=== PATIENT | male | born 1980 | race Caucasian/White ===

== ENCOUNTER 2020-05-16 06:01 | Outpatient (REF) | payer OTHER, SELFPAY ==
[2020-05-16 11:12] LABS: MANUAL DIFF FLAG NO
[2020-05-16 11:25] LABS: Basophils Percent Auto 0.6 % (0-2); Eosinophils Absolute Auto 0.1 X10*3/uL (0.0-0.4); Eosinophils Percent Auto 1.3 % (0-4); Hematocrit 50.2 % (42-52); Hemoglobin 17.4 g/dl (14.0-18.0); Imm Gran Abs Auto 0.01 X10*3/uL (0.00-0.03); Imm Gran Pct Auto 0.2 % (0.0-0.4); Lymphocytes Absolute Auto 1.6 X10*3/uL (1.2-4.9); Lymphocytes Percent Auto 34.3 % (20-40); Mean Corpuscular HGB Conc 34.7 g/dl (31.0-36.0); Mean Corpuscular Hemoglobin 31.5 pg (27.0-33.0); Mean Corpuscular Volume 90.8 fL (80-98); Mean Platelet Volume 9.6 fL (9.4-12.4); Monocytes Absolute Auto 0.5 X10*3/uL (0.1-1.2); Monocytes Percent Auto 11.2 % (2-11); Neutrophils Absolute Auto 2.4 X10*3/uL (2.0-8.3); Neutrophils Percent Auto 52.4 % (45-73); Platelet Count 121 X10*3/uL (160-400); Red Blood Count 5.53 X10*6/uL (4.60-5.80); Red Cell Distribution Width 11.9 % (11.0-16.0); White Blood Count 4.6 X10*3/uL (4.8-10.8)
[2020-05-16 11:55] LABS: Alanine Aminotransferase 87 U/L (0-40); Albumin Level 4.3 g/dL (3.5-5.0); Alkaline Phosphatase 93 U/L (39-117); Anion Gap 12 (12-20); Aspartate Amino Transferase 39 U/L (5-37); Bilirubin Total 1.7 mg/dL (0.0-1.0); Blood Urea Nitrogen 20 mg/dL (9-16); C Reactive Protein 0.08 mg/dL (< or = 0.50); Carbon Dioxide 30 mmol/L (22-29); Chloride 103 mmol/L (96-108); Cholesterol 228 mg/dL; Estimated Glomerular Filt Rate > 60; Glucose Fasting 93 mg/dL (60-99); HDL Cholesterol 43 mg/dL; LDL Cholesterol Calculated 128 mg/dl; Potassium 3.8 mmol/L (3.3-5.1); Rheumatoid Factor < 15.0 IU/mL (<15.0); Sodium 141 mmol/L (135-145); Triglycerides 285 mg/dL
[2020-05-16 12:03] LABS: TSH reflex Free T4 1.87 mIU/mL (0.32-4.0)
[2020-05-16 12:06] LABS: Erythrocyte Sedimentation Rate 1 MM/HR (0-15)
[2020-05-17 12:57] LABS: Antibody to SS-A Antigen <1.0 NEG AI (<1.0 NEG); Antibody to SS-B Antigen <1.0 NEG AI (<1.0 NEG)
[2020-05-18 22:27] LABS: Cyclic Citrullinated Peptide <16 UNITS
[2020-05-19 14:57] LABS: Anti Nuclear Antibody Screen NEGATIVE (NEGATIVE)
== END 2020-05-16 06:02 | disposition home or self-care (01) ==
LOC: HO.HMGCLDS 06:01
PROVIDERS: PCP Nurse Practitioner Family; Visit Provider Nurse Practitioner Family
DX: Z00.00 Encounter for general adult medical examination without abnormal findings (principal); I73.00 Raynaud's syndrome without gangrene; R74.8 Abnormal levels of other serum enzymes; R17 Unspecified jaundice
CPT/HCPCS: 36415; 80053; 80061; 84443; 85025; 85652; 86038; 86039; 86140; 86200; 86235; 86431

== ENCOUNTER 2020-09-02 17:06 | Outpatient (REF) | payer OTHER, SELFPAY ==
--- NOTE | ~2020-09-02 | US_ITS ---
EXAMINATION: US VENOUS ULTRASOUND WITH DOPPLER LOWER EXTREMITY, RIGHT CLINICAL INFORMATION: Pain COMPARISON: None TECHNIQUE: Ultrasound of the deep veins is performed from the hip to the calf with compression sonography and color and pulse Doppler assessment. Spectral analysis with color-flow imaging is performed. FINDINGS: There is normal venous compression and respiratory variation and augmented flow. The visualized common femoral vein, superficial femoral vein, profunda femoral vein, popliteal vein, and the trifurcation region shows no evidence of deep venous thrombosis. There is a 3.7 x 1.6 x 2.3 cm significant popliteal fossa cyst. US/US venous duplex LE RT IMPRESSION: No DVT demonstrated in the right lower extremity. Small Colbert's cyst.
== END 2020-09-02 17:07 | disposition home or self-care (01) ==
LOC: HO.US 17:06
PROVIDERS: PCP Nurse Practitioner Family; Visit Provider Nurse Practitioner Family
DX: M79.661 Pain in right lower leg (principal); M71.21 Synovial cyst of popliteal space [Baker], right knee
CPT/HCPCS: 93971

== ENCOUNTER 2020-09-05 06:06 | Outpatient (REF) | payer OTHER, SELFPAY ==
[2020-09-05 12:24] LABS: Alanine Aminotransferase 63 U/L (0-40); Albumin Level 4.3 g/dL (3.5-5.0); Alkaline Phosphatase 98 U/L (39-117); Aspartate Amino Transferase 36 U/L (5-37); Bilirubin Direct 0.3 mg/dL (0.0-0.5); Bilirubin Total 0.9 mg/dL (0.0-1.0); C Reactive Protein 0.84 mg/dL (< or = 0.50); Cholesterol 201 mg/dL; HDL Cholesterol 35 mg/dL; LDL Cholesterol Calculated 127 mg/dl; Triglycerides 195 mg/dL
[2020-09-05 12:29] LABS: Erythrocyte Sedimentation Rate 8 MM/HR (0-15)
[2020-09-05 12:39] LABS: HBS Num1 0.08 mIU/mL (0-7.99); HBc Num1 0.29 S/CO (0.00-0.79); Hepatitis B Core Antibody Nonreactive (Nonreactive); ~HepC Num1 0.12 S/CO (0.00-0.79); ~Hepatitis A Antibody IgM Nonreactive (Nonreactive); ~Hepatitis B Surface Antibody NONREACTIVE (Nonreactive); ~Hepatitis C Antibody Nonreactive (Nonreactive)
[2020-09-05 13:00] LABS: HBsAGNum1 0.22 S/CO (0.00-0.99); Hepatitis B Surface Antigen Negative (Negative)
[2020-09-09 22:16] LABS: Lipoprotein A <10 nmol/L (<75)
[2020-09-12 10:22] LABS: Testosterone, Total 434 ng/dL (250-1100)
== END 2020-09-05 06:07 | disposition home or self-care (01) ==
LOC: HO.HMGCLDS 06:06
PROVIDERS: PCP Nurse Practitioner Family; Visit Provider Nurse Practitioner Family
DX: M10.9 Gout, unspecified (principal); R74.8 Abnormal levels of other serum enzymes; E78.5 Hyperlipidemia, unspecified; R17 Unspecified jaundice; R53.83 Other fatigue
CPT/HCPCS: 36415; 80061; 80076; 83695; 84403; 84550; 85652; 86140; 86704; 86706; 86709; 86803; 87340

== ENCOUNTER 2020-12-10 14:05 | Outpatient (REF) | payer OTHER, SELFPAY ==
[2020-12-10 15:31] LABS: Alanine Aminotransferase 83 U/L (0-40); Albumin Level 4.5 g/dL (3.5-5.0); Alkaline Phosphatase 94 U/L (39-117); Anion Gap 13 (12-20); Aspartate Amino Transferase 37 U/L (5-37); Bilirubin Total 1.8 mg/dL (0.0-1.0); Blood Urea Nitrogen 30 mg/dL (9-16); Calcium 9.6 mg/dL (8.4-10.2); Carbon Dioxide 29 mmol/L (22-29); Chloride 104 mmol/L (96-108); Estimated Glomerular Filt Rate 41; Glucose Random 104 mg/dL (60-115); Potassium 4.6 mmol/L (3.3-5.1); Sodium 141 mmol/L (135-145); Total Protein 7.1 g/dL (6.5-8.0); Uric Acid 8.7 mg/dL (3.4-7.0)
== END 2020-12-10 14:06 | disposition home or self-care (01) ==
LOC: HO.LAB 14:05
PROVIDERS: PCP Nurse Practitioner Family; Visit Provider Student in an Organized Health Care Education/Training Program
DX: M10.9 Gout, unspecified (principal)
CPT/HCPCS: 36415; 80053; 84550

== ENCOUNTER 2021-07-13 06:03 | Outpatient (REF) | payer OTHER, SELFPAY ==
[2021-07-13 12:15] LABS: Alanine Aminotransferase 117 U/L (0-40); Albumin Level 4.3 g/dL (3.5-5.0); Alkaline Phosphatase 89 U/L (39-117); Anion Gap 12 (12-20); Aspartate Amino Transferase 48 U/L (5-37); Bilirubin Total 1.4 mg/dL (0.0-1.0); Blood Urea Nitrogen 20 mg/dL (9-16); Calcium 9.4 mg/dL (8.4-10.2); Carbon Dioxide 25 mmol/L (22-29); Chloride 107 mmol/L (96-108); Estimated Glomerular Filt Rate > 60; Glucose Random 115 mg/dL (60-115); Potassium 4.2 mmol/L (3.3-5.1); Sodium 140 mmol/L (135-145); Total Protein 7.1 g/dL (6.5-8.0); Uric Acid 8.8 mg/dL (3.4-7.0)
[2021-07-13 12:27] LABS: Alanine Aminotransferase 117 U/L (0-40); Albumin Level 4.3 g/dL (3.5-5.0); Alkaline Phosphatase 87 U/L (39-117); Anion Gap 11 (12-20); Aspartate Amino Transferase 47 U/L (5-37); Bilirubin Direct 0.4 mg/dL (0.0-0.5); Bilirubin Total 1.4 mg/dL (0.0-1.0); Blood Urea Nitrogen 20 mg/dL (9-16); Calcium 9.4 mg/dL (8.4-10.2); Carbon Dioxide 25 mmol/L (22-29); Chloride 107 mmol/L (96-108); Estimated Glomerular Filt Rate > 60; Glucose Random 114 mg/dL (60-115); Potassium 4.2 mmol/L (3.3-5.1); Sodium 139 mmol/L (135-145); Total Protein 7.1 g/dL (6.5-8.0); Uric Acid 8.7 mg/dL (3.4-7.0)
== END 2021-07-13 06:04 | disposition home or self-care (01) ==
LOC: HO.HMGCLDS 06:03
PROVIDERS: PCP Nurse Practitioner Family; Visit Provider Nurse Practitioner Family
DX: M10.9 Gout, unspecified (principal); R17 Unspecified jaundice; R74.8 Abnormal levels of other serum enzymes
CPT/HCPCS: 36415; 80053; 82248; 84550

== ENCOUNTER → 2021-07-14 12:57 | Outpatient (BNVA) | payer OTHER, SELFPAY | PROVIDERS: PCP Nurse Practitioner Family; Visit Provider Nurse Practitioner Family | DX: Z13.89 Encounter for screening for other disorder (principal) ==

== ENCOUNTER → 2024-01-30 16:04 | Outpatient (AMB) | payer OTHER, SELFPAY ==
--- NOTE | 2024-01-30 16:09 | AM.OFFWIN_ITS ---
Intake Vital Signs 3 01/30/24 16:10 01/30/24 16:54 Height 6 ft 1 in Weight 234 lb BMI 30.9 BP 220/120 H 170/110 H Blood Pressure Location Lt brachial Rt brachial Position Sitting Pulse 93 Pulse Source Pulse Oximeter Pulse Oximetry (%) 98 Oxygen Delivery Method Room Air Intake Visit Reasons: EP Wood Sliver Rt Hand Intake Note: Patient here for wood sliver on right hand. Patient Tobacco Use Status: Never used Tobacco Allergies Penicillins [PENICILLINS] Allergy (Intermediate, Verified 01/30/24 16:10) RASH Do you need a note to return to daycare/school/sports/work: No HPI HPI Comments 2 History of Present Illness0 Details Patient is a 43-year-old male complaining of a wooden splinter in the base of his right thumb. He states it just happened prior to his arrival. He tells me he was shoveling a bunch of equipment onto the wooden truckbed and a piece of the bed chipped off into his hand. He used an Exacto knife to try to get it out. He tells me that it is wider on 1 side than the other so we will only it come out [address]. However the only piece we can see is at the other end, the thick end. So he was unable to slight it out. He does not know when his last Tdap was. Patient also tells me he took a caffeine pill 2 hours ago and that is why his blood pressure is elevated. He states he gets a medication called Lipodrene from [facility] , his friend owns store in his friend told him that there is some caffeine in it as well as ephedra. He denies any chest pain, dizziness, lightheadedness, nausea or sweating. [facility] Medical History (Updated 01/30/24 @ 16:57 by Scarlett Yuen PA-C) Erectile dysfunction Testicular failure Hypertension Surgical History H/O hernia repair Family History Father Type 2 diabetes mellitus Mother No problems noted. Social History Alcohol intake: current Alcohol intake frequency: a few times a week Patient Tobacco Use Status: Never used Tobacco Review of Systems Const All systems reviewed & are unremarkable except as noted in HPI and below Physical Exam Vital Signs: Last Vital Signs Pulse 93 01/30/24 16:10 BP 220/120 H 01/30/24 16:10 Pulse Ox 98 01/30/24 16:10 Oxygen Delivery Method Room Air 01/30/24 16:10 BMI result Body Mass Index 30.9 Const General: cooperative, healthy appearing, comfortable, no acute distress and well developed Orientation/consciousness: patient oriented x3 Limitations: no limitations HEENT Head: Yes normal to inspection Neck Neck: Yes normal visual inspection and Yes supple Neuro General: patient oriented x3 Extrem Other: Palpable 1.5cm apparent splinter under the skin, unable to extract safely. Assessment & Plan Assessment & Plan (1) Wood splinter in hand: Code(s): S60.559A - Superficial foreign body of unspecified hand, initial encounter Plan: Had patient wash his hands with soap and water and then applied Betadine and in sterile fashion, used tweezers to try to extract the wooden splinter with no success. Consulted with ortho and they recommended sending a referral to them so that the hand specialist could see the patient soon, recommended keeping it clean and dry with a dressing over it. We also gave the patient a Tdap and started him on Keflex. (2) Elevated blood pressure reading in office without diagnosis of hypertension: Code(s): R03.0 - Elevated blood-pressure reading, without diagnosis of hypertension Plan: Patient's blood pressure went down from 220 systolic to 170 systolic for the 45 minutes he was in the office, he is completely asymptomatic. I did recommend he go to the emergency department but he refused. We had him sign an AMA form. I did tell him he is at an extremely high risk of having a stroke and he should stop taking the [id number] medication, Lipodrene. Plan see above Orders: Orders 2 TDaP Immunization Today S60.559A - Superficial foreign body of unspecified hand, initial encounter Referrals 2 Orthopedics Referral S60.559A - Superficial foreign body of unspecified hand, initial encounter Medications: New 2 cephalexin 500 mg PO Q6H 20 caps 0RF Coding Level of Care Code Est Pt Level 4 (17041) Diagnoses Wood splinter in hand S60.559A Elevated blood pressure reading in office without diagnosis of hypertension R03.0
[2024-01-30 16:10] VITALS: BP 220/120; PULSE 93; O2SAT 98; BMI 30.9
[2024-01-30 16:54] VITALS: BP 170/110
== END ==
PROVIDERS: PCP Nurse Practitioner Family; Visit Provider Physician Assistant
DX: S60.559A Superficial foreign body of unspecified hand, initial encounter (principal); R03.0 Elevated blood-pressure reading, without diagnosis of hypertension

== ENCOUNTER → 2024-01-30 16:04 | Outpatient (BNVA) | payer OTHER, SELFPAY | PROVIDERS: PCP Nurse Practitioner Family | DX: S60.351A Superficial foreign body of right thumb, initial encounter (principal); R03.0 Elevated blood-pressure reading, without diagnosis of hypertension; W45.8XXA Other foreign body or object entering through skin, initial encounter; Y93.89 Activity, other specified; Y92.9 Unspecified place or not applicable; Y99.9 Unspecified external cause status | CPT/HCPCS: 90471; 90715 ==

== ENCOUNTER 2024-01-31 12:57 | Outpatient (REF) | payer OTHER, SELFPAY ==
--- NOTE | ~2024-01-31 | XR_ITS ---
EXAMINATION: XR HAND RIGHT 3 VIEWS CLINICAL INFORMATION: Pain in right hand M79.641. COMPARISON: None TECHNIQUE: PA, lateral, and oblique views of the right hand. FINDINGS: The bones and soft tissues are normal. No fracture. Alignment is anatomic. Joint spaces are maintained. No erosions or soft tissue calcifications. XR/XR hand RT min 3V IMPRESSION: Normal right hand. Electronically signed by: Dennis Humphrey MD 04/03/2024 09:44 AM OMER
== END 2024-01-31 12:58 | disposition home or self-care (01) ==
LOC: HO.HOSX 12:57
PROVIDERS: Visit Provider Orthopaedic Surgery
DX: M79.641 Pain in right hand (principal); S60.551A Superficial foreign body of right hand, initial encounter; X58.XXXA Exposure to other specified factors, initial encounter; Y93.9 Activity, unspecified; Y92.9 Unspecified place or not applicable; Y99.9 Unspecified external cause status
CPT/HCPCS: 73130

== ENCOUNTER 2024-01-31 12:58 | Outpatient (AMB) | payer OTHER, SELFPAY ==
--- NOTE | 2024-01-31 13:16 | A.OFFVIS_ITS ---
Vital Signs 01/31/24 13:18 Height 6 ft 1 in Weight 220 lb BMI 29.0 Handedness Right Intake Visit Reasons: SENIOR LANDSCAPE ARCHITECT- Right Superficial foreign body Intake Note: Sergio is a 43 year old right hand dominant male who presents today asa new patient for a work related injury, DOI: 01/30/24. Patient was seen on 01/30/24 at the walk in clinic for this injury. He reports a piece of wood stabbed the volar aspect of his right thumb and pierced through the skin. He says he tried to remove it but was unable to fully and can still feel something in his wound. He expresses small amount of pain localized on his right thumb but says it is gradually worsening. He says he is still taking the antibiotics prescribed to him. Denies numbness and tingling. Allergies Penicillins [PENICILLINS] Allergy (Intermediate, Verified 01/31/24 13:18) RASH HPI HPI SENIOR LANDSCAPE ARCHITECT- Right Superficial foreign body: Details: Sergio is a 43 year old right hand dominant man who presents with complaints of a splinter in the thenar mass of his right hand. He was loading equipment onto his truck when he obtained the splinter. He tried to cut this out with an exacto knife, but could not remove the splinter. He was seen in the walk-in clinic, where they failed to remove the splinter, and he was given a course of Keflex. He complains of some pain in his hand, over the splinter site. He feels his pain is gradually worsening at this site. He continues to take his Abx as instructed. [facility] Medical History (Updated 01/31/24 @ 13:42 by Wilfred Sylvester) Erectile dysfunction Testicular failure Hypertension Surgical History H/O hernia repair Family History Father Type 2 diabetes mellitus Mother No problems noted. Social History (Updated 01/31/24 @ 13:19 by TNAA Feliciano) Alcohol intake: current Alcohol intake frequency: a few times a week Patient Tobacco Use Status: Never used Tobacco Current occupational status: employed Current occupation: right hand dominant / construction Review of Systems Const All systems reviewed & are unremarkable except as noted in HPI and below Physical Exam Vital Signs: BMI result Body Mass Index 29.0 Const General: cooperative, healthy appearing and no acute distress Orientation/consciousness: patient oriented x3 HEENT Head: Yes normocephalic and Yes atraumatic Eyes EOM: EOMs intact bilaterally Resp Effort & Inspection: normal respiratory effort and able to speak in complete sentences Cardio Jugular venous distension: no JVD Skin General skin exam: turgor normal Rashes: no rashes Neuro General: patient oriented x3 Extrem Other: Evaluation of Right Upper Extremity: The patient is alert, oriented, and in no acute distress Neuro: Median, Ulnar, Radial nerves motor and sensory intact and sensation is normal to the tips of all digits Vascular: Cap refill brisk ROM: He can make a fist and extend all his digits No locking or catching Skin: There is what looks like a partial-thickness transverse laceration/incision for the exact or knife over the thenar mass, measuring ~ 2 cm in length. It looks like the entrance wound is more distal or ulnar. Patient said he was pushing a piece of wood when it entered and then was slightly penetrating more radially. General: Mild surrounding erythema, no drainage. Good active flexion extension and circumduction of the thumb without difficulty. Radiographs: 3 views of the right hand were taken and viewed by me today in clinic. They show no fractures or dislocations. There is no evidence of a radiopaque foreign body seen today Psych Appearance: grossly normal Affect: normal affect Attitude: cooperative Assessment & Plan Assessment & Plan (1) Foreign body of right hand: Code(s): S60.551A - Superficial foreign body of right hand, initial encounter Category: Medical (2) Wood splinter in hand: Code(s): S60.559A - Superficial foreign body of unspecified hand, initial encounter Category: Medical Plan Assessment & Plan: 1. Right hand retained foreign body Likely wooden splinter, DOI: 01/30/24 I educated him about this condition I recommend that we take it out. The patient would like to proceed with surgery I explained the signs and symptoms of infection, if the patient develops any new or worsening erythema, drainage, pain, or warmth they should contact the clinic or attend the ED. He will continue taking his Abx as instructed The risks and benefits of operative treatment were discussed with the patient and the patient wishes to proceed with surgery. These risks include, but are not limited to risk of damage to blood vessels, nerves, tendons, infection, recurrence, incomplete relief of preoperative symptoms, persistent pain, possible need for further surgery and the risks associated with regional blocks and anesthesia. The plan is to take the patient to the operating room sometime on 02/02/24 for the following procedures: 1. Right hand removal of foreign body, under local All of the preoperative paperwork including the consent was reviewed today. All the patient's questions were answered. The patient understands that they will be contacted by our senior scheduler soon to schedule this procedure He denies Diabetes, blood thinners, asthma, heart, lung, kidney issues Scribed for Beti Back MD by Wilfred Sylvester, phlebotomist medical lab assistant, on 01/31/24 at 1:40 PM, EST. Orders: Orders XR hand RT min 3V Today M79.641 - Pain in right hand Coding Level of Care Code New Pt Level 4 (99253) Diagnoses Foreign body of right hand S60.551A Wood splinter in hand S60.559A
[2024-01-31 13:18] VITALS: BMI 29.0
== END 2024-01-31 13:57 | disposition home or self-care (01) ==
PROVIDERS: PCP Nurse Practitioner Family; Visit Provider Orthopaedic Surgery
DX: S60.551A Superficial foreign body of right hand, initial encounter (principal)
CPT/HCPCS: 99204

== ENCOUNTER 2024-02-02 07:00 | Day surgery (SDC) | payer OTHER, SELFPAY ==
[2024-02-02 07:20] VITALS: BMI 29.3
[2024-02-02 07:21] VITALS: BP 163/103; PULSE 100; RESP 18; TEMP 36.6; O2SAT 97
[2024-02-02 07:33] VITALS: BP 152/102
--- NOTE | 2024-02-02 08:46 | MHC.SHP ---
Pre-Procedural Eval Section A - 24 Hr Update-Section A only Date of Service: 02/02/24 The patient is an INPATIENT: No Changes since office visit: No Cold of Flu in the past 2 weeks, No New Medical Problems, No Changes in Medication and No Patient answered all questions The patient has been examined within 24 hours of the surgical procedure. The History & Physical has been completed within 30 days and I have reviewed it.: Yes Section B - Complete if H&P > 30 days Chief Complaint: Superficial foreign body of unspecified hand, init Allergies: Allergies Allergy/AdvReac Type Severity Reaction Status Date / Time Penicillins [PENICILLINS] Allergy Intermediate RASH Verified 02/02/24 07:22 Plan I have reviewed the history and physical and performed a pertinent physical examination on my patient. No changes have occurred unless specified. Time Spent With Patient Time: Total time managing care of this patient today ____ minutes.
--- NOTE | 2024-02-02 08:46 | W.PM.OPN ---
Operative Note Operative Note Date of Service: 02/02/24 Narrative: Operative Note Preop diagnosis: 1. Right thenar mass foreign body/splinter Postop diagnosis: same Procedure: 1. Right hand removal of foreign body from thenar mass Surgeon: Beti Back MD Job Superintendent: Cornelius Major Anesthesia: digital block using 1% lidocaine with epinephrine Findings: Splinter measuring 2 cm x 1-2 mm in diameter removed from right thenar muscle belly EBL: Less than 5 mL Tourniquet time: None Specimens: None Complications: None Disposition: Brought to recovery room in stable condition Plan: Finishes antibiotics. Follow-up in 7-10 days for wound check and suture removal Indications: The patient is 43 years old, with a wooden splinter in the thenar mass of his right hand . The risks and benefits of operative treatment including but not limited to risk of damage to blood vessels, nerves, tendons, infection, persistent pain, persistent symptoms, recurrence or possible need for additional surgery were discussed with the patient and the patient wishes to proceed with surgery. Procedure: Once consent was obtained a digital block was performed in the preop area using a combination of 1% lidocaine with epinephrine. The patient was then brought back to the operating suite and placed on the operative table in supine position. A tourniquet was applied to the proximal aspect of the right upper extremity and the limb was prepped and draped in a standard surgical fashion. Once assured that we had a good block, I made a 1 cm longitudinal incision in line with the wooden splinter at its entry point extending in the direction of the path of the foreign body. The incision was made through the skin the subcutaneous tissues. I then dissected down to the level of the wooden splinter using iris scissors. The foreign body also created an opening at the distal end of its path and I made a 7 mm longitudinal incision over this area and dissected down to the foreign body as well using iris scissors. The foreign body had passed into the fascia of the muscle belly. I was able to grasp the wooden foreign body at its entry wound and withdrawn. It measured about 2 cm in length by 1-2 mm in diameter. I evaluated the wound at its entry point and did not see any other foreign bodies. I also evaluated the wound at its most distal point for any other pieces of foreign body and did not find any. Once satisfied with our foreign body removal the wound was copiously irrigated with normal saline and hemostasis was obtained with a brief period of local pressure. The skin edges were reapproximated with 1 5.0 nylon suture and a sterile dressing was applied. The patient appears to have tolerated the procedure well and with no complications. All digits were well vascularized at the conclusion of the case.
[2024-02-02 09:11] VITALS: BP 175/99; PULSE 99; RESP 14; O2SAT 96
== END 2024-02-02 09:17 | disposition home or self-care (01) ==
PROVIDERS: PCP Nurse Practitioner Family; Visit Provider Orthopaedic Surgery
PROC: (CPT 10121; principal; 2024-02-02 08:30)
DX: S60.551A Superficial foreign body of right hand, initial encounter (principal); M79.641 Pain in right hand; X58.XXXA Exposure to other specified factors, initial encounter; Y93.H3 Activity, building and construction; Y92.69 Other specified industrial and construction area as the place of occurrence of the external cause; Y99.0 Civilian activity done for income or pay; I10 Essential (primary) hypertension
CPT/HCPCS: 10121; J0171; J2003; J2004

== ENCOUNTER → 2024-02-02 07:00 | Outpatient (BNV) | payer OTHER, SELFPAY | PROVIDERS: PCP Nurse Practitioner Family; Visit Provider Orthopaedic Surgery | DX: S60.551A Superficial foreign body of right hand, initial encounter (principal) | CPT/HCPCS: 20520 ==

== ENCOUNTER 2024-12-24 15:54 | Outpatient (AMB) | payer OTHER, SELFPAY ==
[2024-12-24 16:01] VITALS: BP 150/104; PULSE 90; RESP 16; O2SAT 97; BMI 29.4
--- NOTE | 2024-12-24 16:01 | A.OFFPC_ITS ---
Vital Signs 12/24/24 16:01 12/24/24 16:57 Height 6 ft 1 in Weight 223 lb BMI 29.4 BP 150/104 H 154/110 H Blood Pressure Location Lt brachial Rt brachial Position Sitting Sitting Respiration 16 Pulse 90 Pulse Source Pulse Oximeter Pulse Oximetry (%) 97 Oxygen Delivery Method Room Air Intake Visit Reasons: Annual Pe Tool Coordinator Required: No Accompanied by: Self / Same As Patient Allergies Penicillins (PENICILLINS) Allergy (Intermediate, Verified 12/24/24 17:14) RASH Medication List - Last Reconciled 12/24/24 by Anuj Piedra [facility] buspirone 5 mg PO DAILY 30 days metoprolol succinate ER 25 mg PO DAILY 90 days Tobacco use date assessed: 12/24/24 Dental Screening Dental Screen Date: 12/24/24 Did you have a dental visit in the last 12 months?: Yes Did you have a dental problem in the last 6 months where you did not have access to dental care?: No Was dental information given to patient?: Patient has dentist HPI Annual Pe HPI Details History of Present Illness The patient is a 44-year-old male presenting for a physical exam and management of anxiety and hypertension. 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 He denies any suicidal ideation or homicidal thoughts. He has experienced chest discomfort, which he associates with stress, and found relief using Ativan in the past ('s). The patient has a history of hypertension, for which a beta anna marie is being considered as part of his management plan. He will be starting on buspirone at night to help manage his anxiety. He denies any abdominal pain, shortness of breath, or urinary problems, but reports erectile dysfunction for which he receives testosterone supplements+ injections from a urologist. He is physically active and appears to be in good shape. 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[employer], reports high stress levels - Exercise: Fairly active, appears in go od physical condition Review of Systems - Psychiatric: Reports anxiety, denies s uicidal or homicidal ideation - Cardiovascular: Reports chest discomfo rt related to stress - Gastrointestinal: Denies abdominal heidi n, constipation, or diarrhea - Respiratory: Denies shortness of breat h - Genitourinary: Reports erectile dysfun ction, denies urinary problems Physical Exam General: Cooperative, healthy appearing, comfortable, no acute distress and well developed Orientation: Patient oriented x3 Limitations: No limitations Head: Normal to inspection Ears: Hearing grossly normal bilaterally Nose: Normal external nose present Face and sinus: Normal facial exam Eyes: Appearance normal, both eyes and all related structures Neck: Normal visual inspection and Yes full ROM Respiratory: Normal respiratory effort and able to speak in complete sentences. Clear to auscultation bilaterally Cardiovascular: Regular rate and rhythm. Normal S1 and S2 GI: Normal to inspection. Soft to palpation and nontender : Testicles without masses/lesions and no hernias appreciated. Reports erecti le dysfunction and receives testosterone supplements from a urologist Skin: No rashes or lesions noted Neuro: Patient oriented x3 Extremities: Normal to inspection Results - EKG: Normal sinus rhythm Plan 1. Anxiety The patient will start on buspirone at a low dose at night to manage anxiety symptoms. 2. Hypertension The patient will begin a beta anna marie regimen to address hypertension and associated anxiety. He is advised to monitor his blood pressure at home using an automatic cuff and report the readings to myself in the near future 3. Erectile Dysfunction The patient continues to receive testosterone supplements/injections from his urologist for erectile dysfunction. Discussion Notes I discussed with the patient the initiation of buspirone for anxiety management and the use of a beta anna marie for hypertension and anxiety. We also talked about the importance of monitoring blood pressure at home and the plan to follow up in six months. I recommended a referral for a colonoscopy as part of his preventative care. Patient Instructions - Start taking buspirone at night as pre scribed. - Begin beta anna marie regimen in the morn ing. - Monitor blood pressure at home and rep ort readings. - Follow up in six months for reassessme nt. - Schedule a colonoscopy as referred. [facility] Medical History Erectile dysfunction Testicular failure Hypertension Surgical History H/O hernia repair Family History Father Type 2 diabetes mellitus Mother No problems noted. Social History Are you a primary home health aide caregiver to a significant other at home: No Do you presently have visiting nurse or other home services: No Alcohol intake: current Alcohol intake frequency: a few times a week Patient Tobacco Use Status: Never used Tobacco Current occupational status: employed Current occupation: right hand dominant / construction Questionnaire PHQ-9 Over the last 2 weeks, how often have you been bothered by any of the following problems? 1. Little interest or pleasure in doing things: not at all 2. Feeling down, depressed, or hopeless: not at all 3. Trouble falling or staying asleep, or sleeping too much: more than half the days 4. Feeling tired or having little energy: not at all 5. Poor appetite or overeating: not at all 6. Feeling bad about yourself - or that you are a failure or have let yourself or your family down: not at all 7. Trouble concentrating on things, such as reading the newspaper or watching television: not at all 8. Moving or speaking so slowly that other people could have noticed. Or the opposite - being so fidgety or restless that you have been moving around a lot more than usual: not at all 9. Thoughts that you would be better off or of hurting yourself in some way: not at all Total score: 2 Depression Screening Interpretation: Negative Depression Screening Done: Yes 22265 - PHQ-9 Billing: Yes Source: Developed by Drs. Andrew Haji, Courtney Gross, Usman Rome and colleagues, with an educational debbi from [employer]. Thrive Questionnaire Date Thrive assessed: 12/17/24 I am a: Patient What is your living situation today?: I have a steady place to live Within the past 12 months, did the food you bought not last and you didn't have the money to get more?: Never true Within the past 12 months, did you worry whether your food would run out before you got money to buy more?: Never true Do you have trouble paying for medicines?: No Do you have trouble getting transportation to medical appointments?: No Do you have trouble paying your heating and electricity bill?: No Do you have trouble taking care of your child, family member or friend?: No Do you have trouble with day-to-day activities such as bathing, preparing meals, shopping, managing finances, etc.?: No Are you currently unemployed and looking for a job?: No Are you interested in more education?: No Please select the resources that you would like help with: None Currently or been in a relationship where the following occur: No concerns reported THRIVE Score: 0 AUDIT C Alcohol Use Questionnaire (AUDIT-C) 1. How often do you have a drink containing alcohol?: 2-3 times a week 2. How many drinks containing alcohol do you have on a typical day when you are drinking?: 1 or 2 3. How often do you have six or more drinks on one occasion?: Never Total Score: 3 Score Reviewed/Action Taken: Yes MIRNA-7 AMB Questionnaire MIRNA-7 Feeling nervous, anxious, or on edge: 1 = Several days Not being able to stop or control worryin = Not at all Worrying too much about different things: 1 = Several days Trouble relaxin = Several days Being so restless that it is hard to sit still: 0 = Not at all Becoming easily annoyed or irritable: 1 = Several days Feeling afraid as if something awful might happen: 0 = Not at all Total MIRNA-7 score (0-4 normal; 5-9 mild; 10-14 moderate; 15-21 severe): 4 Source: Developed by Drs. Andrew Haji, Courtney Gross, Usman Rome and colleagues, with an educational debbi from [employer]. MIRNA-7 Assessment Billing MIRNA-7 Assessment Tool: MIRNA-7 Assessment 53432 Physical exam (Primary Care) Vital Signs: Last Vital Signs Pulse 90 12/24/24 16:01 Resp 16 12/24/24 16:01 BP 150/104 H 12/24/24 16:01 Pulse Ox 97 12/24/24 16:01 Oxygen Delivery Method Room Air 12/24/24 16:01 BMI result Body Mass Index 29.4 Tobacco/Smoking Status: Tobacco use Status Tobacco use date assessed 12/24/24 12/24/24 16:06 Patient Tobacco Use Status Never used Tobacco 12/24/24 16:06 PHQ-9: PHQ-9 Score PHQ-9: Total score 2 12/24/24 16:45 Depression Screening Interpretation: Negative Thrive Assessment: Date of Thrive Assessment Date Thrive assessed 12/17/24 12/24/24 16:06 Currently or been in a relationship where the following occur: No concerns reported Coding Level of Care Code Est Pt Level 3 (76377) Est Pt Prev Care 40-64y(58202) Diagnoses Physical exam Z00.00 Anxiety F41.9 Chest discomfort R07.89 HTN (hypertension) I10 Additional Codes PHQ-9 - 31664 - PHQ-9 Billing: Yes ([id number]) MIRNA-7 Assessment Billing - MIRNA-7 Assessment Tool: MIRNA-7 Assessment 65151 ([id number]) Assessment & Plan Assessment & Plan (1) Physical exam: Code(s): Z00.00 - Encounter for general adult medical examination without abnormal findings Category: Medical (2) Anxiety: Code(s): F41.9 - Anxiety disorder, unspecified Category: Medical (3) Chest discomfort: Code(s): R07.89 - Other chest pain Category: Medical (4) HTN (hypertension): Code(s): I10 - Essential (primary) hypertension Category: Medical Plan . Orders: Referrals Gastroenterology Referral Z00.00 - Encounter for general adult medical examination without abnormal findings Medications: New buspirone 5 mg PO DAILY 30 tabs 3RF 30 days metoprolol succinate ER 25 mg PO DAILY 90 tabs 0RF 90 days
[2024-12-24 16:57] VITALS: BP 154/110
== END 2024-12-24 17:06 | disposition home or self-care (01) ==
LOC: HO.HMCC 15:55
PROVIDERS: PCP Nurse Practitioner Family; Visit Provider Nurse Practitioner Family
DX: Z00.00 Encounter for general adult medical examination without abnormal findings (principal); F41.9 Anxiety disorder, unspecified; R07.89 Other chest pain; I10 Essential (primary) hypertension

== ENCOUNTER → 2024-12-24 15:54 | Outpatient (BNVA) | payer OTHER, SELFPAY | PROVIDERS: PCP Nurse Practitioner Family; Visit Provider Nurse Practitioner Family | DX: Z00.00 Encounter for general adult medical examination without abnormal findings (principal); F41.9 Anxiety disorder, unspecified; I10 Essential (primary) hypertension; N52.9 Male erectile dysfunction, unspecified; R07.89 Other chest pain | CPT/HCPCS: 96127 ==

== ENCOUNTER 2025-03-19 06:03 | Outpatient (REF) | payer OTHER, SELFPAY ==
[2025-03-19 10:05] LABS: MANUAL DIFF FLAG NO
[2025-03-19 10:25] LABS: Imm Gran Abs Auto 0.05 X10*3/uL (0.00-0.03); Imm Gran Pct Auto 1.0 % (0.0-0.4); Lymphocytes Absolute Auto 1.1 X10*3/uL (1.2-4.9); Mean Corpuscular HGB Conc 35.5 g/dl (31.0-36.0); Mean Corpuscular Hemoglobin 32.3 pg (27.0-33.0); Mean Corpuscular Volume 90.9 fL (80.0-98.0); NRBC Abs Auto 0.000 X10*3/uL (0.0-0.012); NRBC Pct Auto 0.0 /100WBC (0.0-0.2); Platelet Count 111 X10*3/uL (160-400); Red Blood Count 6.35 X10*6/uL (4.60-5.80); White Blood Count 4.9 X10*3/uL (4.8-10.8)
[2025-03-19 10:42] LABS: Hematocrit 57.7 % (42.0-52.0)
[2025-03-19 10:43] LABS: Hemoglobin 20.5 g/dl (14.0-18.0)
[2025-03-19 10:53] LABS: Albumin Level 4.8 g/dL (3.5-5.0); Alkaline Phosphatase 70 U/L (39-117); Anion Gap 9 (12-20); Aspartate Amino Transferase 48 U/L (5-37); Blood Urea Nitrogen 20 mg/dL (9-16); Calcium 9.5 mg/dL (8.4-10.2); Carbon Dioxide 31 mmol/L (22-29); Chloride 102 mmol/L (96-108); Cholesterol 215 mg/dL (<200); Estimated Glomerular Filt Rate > 60; HDL Cholesterol 44 mg/dL (>40); Potassium 4.1 mmol/L (3.3-5.1); Sodium 138 mmol/L (135-145); Total Protein 7.4 g/dL (6.5-8.0); Triglycerides 146 mg/dL (<150)
[2025-03-19 11:17] LABS: Alanine Aminotransferase 80 U/L (0-40)
== END 2025-03-19 06:04 | disposition home or self-care (01) ==
LOC: HO.HMGCLDS 06:03
PROVIDERS: PCP Nurse Practitioner Family; Visit Provider Nurse Practitioner Family
DX: Z00.00 Encounter for general adult medical examination without abnormal findings (principal); Z12.5 Encounter for screening for malignant neoplasm of prostate; Z13.6 Encounter for screening for cardiovascular disorders; Z13.29 Encounter for screening for other suspected endocrine disorder
CPT/HCPCS: 36415; 80053; 80061; 84153; 84443; 85025

== ENCOUNTER 2025-03-28 08:55 | Outpatient (REF) | payer OTHER, SELFPAY ==
--- NOTE | ~2025-03-28 | US_ITS ---
CLINICAL HISTORY: R17 - Unspecified jaundice US abdomen complete Comparison: None Provided Findings: Cholelithiasis without gallbladder wall thickening. Common duct: 3.4 mm. No sonographic Ding sign. Fatty infiltration liver without focal abnormality. Right lobe measures 15.5 cm in length. Main portal vein patent with normal direction of flow. Pancreas is unremarkable. Aorta and IVC patent and normal in caliber. Right kidney 10.9 cm in length. Left kidney 11.5 cm in length. No focal abnormality or hydronephrosis. Spleen 15.5 cm in length. No focal abnormality. Impression: Cholelithiasis without wall thickening Fatty infiltration of the liver This document has been electronically signed by: Gerry Rubin MD on 03/28/2025 20:27:38
[2025-03-28 10:20] LABS: MANUAL DIFF FLAG NO
[2025-03-28 10:29] LABS: Hemoglobin 20.1 g/dl (14.0-18.0); Imm Gran Abs Auto 0.02 X10*3/uL (0.00-0.03); Imm Gran Pct Auto 0.5 % (0.0-0.4); Lymphocytes Absolute Auto 1.2 X10*3/uL (1.2-4.9); Mean Corpuscular HGB Conc 36.5 g/dl (31.0-36.0); Mean Corpuscular Hemoglobin 32.8 pg (27.0-33.0); Mean Corpuscular Volume 90.0 fL (80.0-98.0); NRBC Abs Auto 0.000 X10*3/uL (0.0-0.012); NRBC Pct Auto 0.0 /100WBC (0.0-0.2); Platelet Count 109 X10*3/uL (160-400); Red Blood Count 6.12 X10*6/uL (4.60-5.80); Reticulocytes Absolute 0.174 X10*6/uL (0.026-0.095); White Blood Count 4.0 X10*3/uL (4.8-10.8)
[2025-03-28 10:30] LABS: Hematocrit 55.1 % (42.0-52.0)
[2025-03-28 11:12] LABS: Alanine Aminotransferase 86 U/L (0-40); Albumin Level 4.8 g/dL (3.5-5.0); Alkaline Phosphatase 74 U/L (39-117); Anion Gap 11 (12-20); Aspartate Amino Transferase 49 U/L (5-37); Blood Urea Nitrogen 19 mg/dL (9-16); Calcium 9.2 mg/dL (8.4-10.2); Carbon Dioxide 29 mmol/L (22-29); Chloride 106 mmol/L (96-108); Estimated Glomerular Filt Rate > 60; Iron 143 mcg/dL (45-160); Percent Iron Saturation 48 % (15-50); Potassium 4.5 mmol/L (3.3-5.1); Sodium 141 mmol/L (135-145); Total Iron Binding Capacity 299 mcg/dL (228-428); Total Protein 7.4 g/dL (6.5-8.0); Unsaturated Iron Binding 156 ug/dL
[2025-03-28 11:16] LABS: Ferritin 148 ng/mL (20-250)
[2025-03-28 11:33] LABS: Folate 6.6 ng/mL (> or = 4.0); Vitamin B12 531 pg/mL (200-900)
== END 2025-03-28 08:56 | disposition home or self-care (01) ==
LOC: HO.US 08:55
PROVIDERS: PCP Nurse Practitioner Family; Visit Provider Nurse Practitioner Family
DX: R17 Unspecified jaundice (principal); R74.8 Abnormal levels of other serum enzymes; D58.2 Other hemoglobinopathies
CPT/HCPCS: 36415; 76700; 80053; 82248; 82607; 82728; 82746; 83010; 83540; 83615; 84402; 84403; 85025; 85045; 86880

== ENCOUNTER → 2025-03-28 09:41 | Outpatient (BNV) | payer OTHER, SELFPAY | PROVIDERS: PCP Nurse Practitioner Family; Visit Provider Radiology Diagnostic Radiology | DX: K80.20 Calculus of gallbladder without cholecystitis without obstruction (principal); K76.0 Fatty (change of) liver, not elsewhere classified | CPT/HCPCS: 76700 ==